=== PATIENT | male | born 2000 | race Caucasian/White ===

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

== ENCOUNTER 2021-05-12 14:38 | Outpatient (REF) | payer OTHER, MEDICAID, SELFPAY ==
[2021-05-12 15:10] LABS: IDNOW Serial# 9DD0AD1C; Strep A Nucleic Acid Negative (Negative)
[2021-05-12 15:12] LABS: Basophils Percent Auto 0.2 % (0-2); Eosinophils Absolute Auto 0.1 X10*3/uL (0.0-0.4); Eosinophils Percent Auto 0.7 % (0-4); Hematocrit 43.5 % (42.0-52.0); Hemoglobin 14.5 g/dl (14.0-18.0); Imm Gran Abs Auto 0.02 X10*3/uL (0.00-0.03); Imm Gran Pct Auto 0.2 % (0.0-0.4); Lymphocytes Absolute Auto 1.5 X10*3/uL (1.2-4.9); Lymphocytes Percent Auto 13.1 % (20-40); MANUAL DIFF FLAG SCAN; Mean Corpuscular HGB Conc 33.3 g/dl (31.0-36.0); Mean Corpuscular Volume 89.9 fL (80.0-98.0); Mean Platelet Volume 10.8 fL (9.4-12.4); Monocytes Absolute Auto 1.6 X10*3/uL (0.1-1.2); Monocytes Percent Auto 13.8 % (2-11); Neutrophils Absolute Auto 8.3 x10*3/uL (2.0-8.3); Platelet Count 205 X10*3/uL (160-400); Red Blood Count 4.84 X10*6/uL (4.60-5.80); Red Cell Distribution Width 12.3 % (11.0-16.0); SCAN SMEAR FLAG 1; White Blood Count 11.5 X10*3/uL (4.8-10.8)
[2021-05-12 15:31] LABS: Influenza A PCR NEGATIVE (Negative); Influenza B PCR NEGATIVE (Negative); Resp Syncy Virus RNA Qual PCR NEGATIVE (Negative); SARS COV2 PCR INHOUSE NEGATIVE (Negative)
[2021-05-12 15:34] LABS: SLIDE REVIEW VERIFIED
[2021-05-12 15:39] LABS: Alanine Aminotransferase 22 U/L (0-40); Albumin Level 4.8 g/dL (3.5-5.0); Alkaline Phosphatase 76 U/L (39-117); Anion Gap 12 (12-20); Aspartate Amino Transferase 25 U/L (5-37); Bilirubin Total 0.8 mg/dL (0.0-1.0); Blood Urea Nitrogen 16 mg/dL (9-16); Calcium 9.8 mg/dL (8.4-10.2); Carbon Dioxide 28 mmol/L (22-29); Chloride 104 mmol/L (96-108); Creatinine Clr Calc Pharmacy 103.8; Estimated Glomerular Filt Rate > 60; Glucose Random 96 mg/dL (60-115); Potassium 4.5 mmol/L (3.3-5.1); Sodium 139 mmol/L (135-145); Total Protein 7.3 g/dL (6.5-8.0)
[2021-05-12 15:52] LABS: Erythrocyte Sedimentation Rate 6 MM/HR (0-15)
[2021-05-12 15:59] LABS: TSH reflex Free T4 0.87 uIU/mL (0.32-4.0)
[2021-05-13 08:37] LABS: Monotest Positive (Negative)
[2021-05-14 01:31] LABS: EBV-VCA IgM Ab <36.00 U/mL
[2021-05-18 11:57] LABS: Testosterone, Total 516 ng/dL (250-1100)
== END 2021-05-12 14:39 | disposition home or self-care (01) ==
LOC: HO.LAB 14:38
PROVIDERS: PCP Pediatrics; Visit Provider Pediatrics
DX: J06.9 Acute upper respiratory infection, unspecified (principal); J02.9 Acute pharyngitis, unspecified; R53.83 Other fatigue; Z20.822 Contact with and (suspected) exposure to COVID-19
CPT/HCPCS: 0241U; 36415; 80053; 84403; 84443; 85025; 85652; 86308; 86664; 86665; 87651

== ENCOUNTER 2021-06-03 14:02 | Outpatient (REF) | payer OTHER, MEDICAID, SELFPAY ==
--- NOTE | ~2021-06-03 | US_ITS ---
EXAMINATION: US ABDOMEN LIMITED CLINICAL INFORMATION: [place], rule out splenomegaly. Left upper quadrant and left lower quadrant pain. COMPARISON: None TECHNIQUE: Real-time imaging of the left upper quadrant and left lower quadrant. FINDINGS: Imaging to the left upper quadrant reveals spleen to be normal length measuring 11.4 cm. It is homogeneous echotexture without focal lesion. No perisplenic fluid collection. The left kidney measures 10.3 x 6.4 x 5.3 cm. There is normal cortical thickness. Prominent pyramids are seen. No echogenic stones, cyst or hydronephrosis. US/US abdomen limited IMPRESSION: Unremarkable spleen and left kidney.
== END 2021-06-03 14:03 | disposition home or self-care (01) ==
LOC: HO.US 14:02
PROVIDERS: PCP Pediatrics; Visit Provider Pediatrics
DX: B27.90 Infectious mononucleosis, unspecified without complication (principal)
CPT/HCPCS: 76705